=== PATIENT | female | born 1990 | race Caucasian/White ===

== ENCOUNTER 2025-04-14 15:59 | Emergency (ER) | payer BC, SELFPAY ==
[2025-04-14] VITALS (20 sets, daily range): BP systolic 128–175; BP diastolic 79–109; PULSE 52–90; TEMP 36.4; O2SAT 100; BMI 18.7
--- NOTE | 2025-04-14 16:14 | PC.NURSE ---
pt describes CP as pressure upper midsternal since urs
--- NOTE | 2025-04-14 16:25 | ECG_ITS ---
[facility] Test Date: 2025-04-14 Pat Name: RODY CARRASCO Department: Room: - Gender: Female Diabetes Territory Manager: : 1990 Requested By: [id number] Order Number: [id number] Reading MD: SIA HOLLOWAY M.D. Measurements Intervals Elliott Rate: 74 P: 60 DC: 142 QRS: 93 QRSD: 88 T: 35 QT: 370 QTc: 397 Interpretive Statements 1100 Sinus rhythm 7102 Moderate right axis deviation Borderline ECG No previous ECG available for comparison Electronically Signed On 04-14-2025 20:33:11 EDT by SIA HOLLOWAY M.D.
[2025-04-14] MEDS: KETOROLAC TROMETHAMINE 30 MG/ML VIAL IVP (16:57)
--- NOTE | 2025-04-14 17:08 | ED.GENADUL1 ---
HPI HPI - General Adult General Chief complaint: Chest Pain Stated complaint: Chest Pain Time Seen by Provider: 04/14/25 16:04 Source: patient and family Mode of arrival: walk-in Limitations: no limitations History of Present Illness HPI narrative: Patient presents with chest pain that started on she has had some shortness of breath she has had rapid breathing, hypertension, pressure-like feeling in her chest slight cough slight sore throat. She does take medication including metoprolol and lisinopril. She does drink caffeinated products. Patient denies abdominal pain, urinary bleeding, rectal bleeding, vomiting, leg swelling, PE history, hemoptysis, hematemesis, hematuria states she only takes 2 medications. She does take aspirin occasionally. She does follow-up with cardiology. Symptoms mild to moderate severity nothing improves her symptoms nothing worsens her symptoms. Onset (ago): day(s) (3) Location: Reports chest Related Data Home Medications ?Medication ?Instructions ?Recorded ?Confirmed lisinopril 10 mg tablet 10 mg PO DAILY 04/14/25 04/14/25 magnesium 200 mg tablet 400 mg PO DAILY 04/14/25 04/14/25 metoprolol succinate 25 mg 12.5 mg PO DAILY 04/14/25 04/14/25 tablet,extended release 24 hr Previous Rx's ?Medication ?Instructions ?Recorded naproxen 500 mg tablet,delayed 500 mg PO BID #10 tabs 04/14/25 release (EC-Naprosyn) Allergies Allergy/AdvReac Type Severity Reaction Status Date / Time clonidine Allergy Severe increased Verified 04/14/25 16:03 blood blood pressure fish oil AdvReac Severe Vomiting Verified 04/14/25 16:03 Opioid HPI Opioid Management Most Recent Opioid Data: Last Pain Scale 6 Today, 16:03 Review of Systems ROS Status of ROS 10 or more systems reviewed and unremarkable except as noted in history and below Constitutional Denies: fatigue Eyes Reports: change in vision Ears, nose, mouth, and throat Reports: throat pain Cardiovascular Reports: chest pain and lightheadedness; Denies: swelling of feet/ankles Gastrointestinal Denies: abdominal pain, vomiting or blood in stool Genitourinary Reports: painful urination; Denies: blood in urine Musculoskeletal Reports: back pain; Denies: extremity swelling Integumentary/Breast Denies: rash Neurological Reports: headache Endocrine Denies: excessive urination Hematologic/Lymphatic Denies: easy bruising Allergic/Immunologic Denies: hives [facility] Medical History (Updated 04/14/25 @ 18:30 by MARKIE DOBBS II) HTN (hypertension) ?I10 - Essential (primary) hypertension (ICD-10) Social History Little interest or pleasure in doing things: not at all Feeling down, depressed, or hopeless: not at all Exam Constitutional Vital Signs, click to edit/add: Last Vital Signs Temp 97.5 F L 04/14/25 16:03 Pulse 67 04/14/25 18:10 Resp 18 04/14/25 18:10 BP 128/79 04/14/25 18:00 Pulse Ox 100 04/14/25 16:03 Documenting provider has reviewed patient's vital signs: yes Common normals: no apparent distress, oriented x3, healthy appearing and alert Exam limitations: no altered mental status General appearance: cooperative and well kempt; not in distress Orientation/consciousness: Yes awake, Yes oriented to person, Yes oriented to place and Yes oriented to time; not confused HENHI Common normals: normocephalic, head/scalp atraumatic, hearing grossly normal bilaterally and external ears normal Face and sinus: normal facial exam Nose: external nose normal General ear: hearing not grossly impaired External ear: external ears normal Tympanic membrane: TMs normal bilaterally Mouth: oral and palatal mucosa normal Throat: uvula midline and other (Slight erythema); no peritonsillar mass Eye Common normals: PERRL and EOMs intact bilaterally General eye: normal appearance of both eyes and normal light reflex Neck & C-Spine Common normals: full ROM and supple Chest Common normals: palpation of chest abnormal Chest: tenderness (Right anterior tenderness to palpation) Respiratory Common normals: normal respiratory effort and clear to auscultation bilaterally Effort & inspection: able to speak in complete sentences Auscultation: no wheezes Cardio Common normals: regular rate, regular rhythm, S1 normal heart sound and S2 normal heart sound GI Common normals: Normal to inspection, nondistended, normoactive bowel sounds present, soft to palpation and non-tender Back & Pelvis Common normals: thoraco-lumbar ROM normal Extremity Common normals: normal to inspection and no pedal edema General: other findings (+2 anterior tibial pulses bilaterally); no calf tenderness, no edema and pulses normal Neuro Common normals: oriented x3 and CN's II-XII intact bilaterally Psych Common normals: mental status grossly normal and thought process normal Course Vital Signs Vital signs: Vital Signs Temperature 97.5 F L 04/14/25 16:03 Pulse Rate 83 04/14/25 16:03 Respiratory Rate 20 04/14/25 16:03 Blood Pressure 175/109 H 04/14/25 16:03 Pulse Oximetry 100 04/14/25 16:03 Temperature 97.5 F L 04/14/25 16:03 Pulse Rate 67 04/14/25 18:10 Respiratory Rate 18 04/14/25 18:10 Blood Pressure 128/79 04/14/25 18:00 Pulse Oximetry 100 04/14/25 16:03 Medical Decision Making [facility] Narrative Medical decision making narrative: Patient presents with 3-day history of pressure reproducible chest wall pain. She also has cough slight sore throat headache she denies any history of CAD stents surgery PE DVT. PERC score 0. Will add CBC CMP troponin x 2 chest x-ray magnesium EKG. 30 mg IV. cn II- 12 grossly intact. Patient remains conversant. Headache negative. she states she does take a magnesium supplement denies any additional medications including prednisone or steroids. Patient has 2 negative troponins. 1.6 magnesium will increase her magnesium to twice daily for 3 days. She will follow-up with her primary project asst Dr. Squires. Continue her medication we discussed chest wall pain reproducible atypical chest pain at length. X-ray report negative per radiology report Differential Diagnosis Differential Diagnosis: Atypical chest pain upper respiratory infection pneumonia. Lab Data Lab results reviewed: Yes I reviewed the patient's lab results Labs: Lab Results 04/14/25 04/14/25 04/14/25 Range/Units 16:42 16:45 17:24 WBC 7.0 (4.0-11.0) 10^3/uL RBC 4.39 (4.20-5.40) 10^6/uL Hgb 13.7 (12.0-16.0) g/dL Hct 38.7 (36.0-48.0) % MCV 88.2 (81.0-99.0) fL MCH 31.2 (26.7-34.0) pg MCHC 35.4 H (29.9-35.2) g/dL RDW 11.9 (11.0-15.0) % Plt Count 296 (150-450) 10^3/uL MPV 9.3 L (9.5-13.5) fL Neut % (Auto) 54.8 (43.0-75.0) % Lymph % (Auto) 35.7 (20.5-60.0) % [place] % (Auto) 6.7 (1.7-12.0) % Eos % (Auto) 2.3 (0.9-7.0) % Baso % (Auto) 0.4 (0.2-2.0) % Neut # (Auto) 3.9 (1.4-6.5) 10^3/uL Lymph # (Auto) 2.5 (1.2-3.8) 10^3/uL [place] # (Auto) 0.5 (0.3-0.8) 10^3/uL Eos # (Auto) 0.2 (0.0-0.7) 10^3/uL Baso # (Auto) 0.0 (0.0-0.1) 10^3/uL Abs Immat Gran (auto) 0.01 (0.00-0.03) 10^3/uL Imm/Tot Granulo (auto) 0.1 (0.0-0.5) % Sodium 140 (136-145) mmol/L Potassium 3.5 (3.5-5.1) mmol/L Chloride 105 (98-107) mmol/L Carbon Dioxide 25.2 (21.0-32.0) mmol/L Anion Gap 13.3 BUN 6.0 L (7.0-18.0) mg/dL Creatinine 0.63 (0.55-1.02) mg/dL Est GFR ( Amer) >60 (>=60 mL/min/1.73m^2) Est GFR (Non-Af Amer) >60 (>=60 mL/min/1.73m^2) BUN/Creatinine Ratio 9.5 Glucose 88 (74-106) mg/dL Calcium 8.9 (8.5-10.1) mg/dL Magnesium 1.6 L (1.8-2.4) mg/dL Total Bilirubin 0.4 (0.2-1.0) mg/dL AST 12 L (15-37) U/L ALT 16 (14-59) U/L Alkaline Phosphatase 58 (46-116) U/L Troponin I High Sens 4.2 (4.0-51.3) pg/mL Total Protein 7.1 (6.4-8.2) g/dL Albumin 4.1 (3.4-5.0) g/dL Globulin 3.0 g/dL Albumin/Globulin Ratio 1.4 SARS-CoV-2 Ag (CV2AG) Negative (NEGATIVE) Streptococcus Screen Negative 04/14/25 Range/Units 17:49 WBC (4.0-11.0) 10^3/uL RBC (4.20-5.40) 10^6/uL Hgb (12.0-16.0) g/dL Hct (36.0-48.0) % MCV (81.0-99.0) fL MCH (26.7-34.0) pg MCHC (29.9-35.2) g/dL RDW (11.0-15.0) % Plt Count (150-450) 10^3/uL MPV (9.5-13.5) fL Neut % (Auto) (43.0-75.0) % Lymph % (Auto) (20.5-60.0) % [place] % (Auto) (1.7-12.0) % Eos % (Auto) (0.9-7.0) % Baso % (Auto) (0.2-2.0) % Neut # (Auto) (1.4-6.5) 10^3/uL Lymph # (Auto) (1.2-3.8) 10^3/uL [place] # (Auto) (0.3-0.8) 10^3/uL Eos # (Auto) (0.0-0.7) 10^3/uL Baso # (Auto) (0.0-0.1) 10^3/uL Abs Immat Gran (auto) (0.00-0.03) 10^3/uL Imm/Tot Granulo (auto) (0.0-0.5) % Sodium (136-145) mmol/L Potassium (3.5-5.1) mmol/L Chloride (98-107) mmol/L Carbon Dioxide (21.0-32.0) mmol/L Anion Gap BUN (7.0-18.0) mg/dL Creatinine (0.55-1.02) mg/dL Est GFR ( Amer) (>=60 mL/min/1.73m^2) Est GFR (Non-Af Amer) (>=60 mL/min/1.73m^2) BUN/Creatinine Ratio Glucose (74-106) mg/dL Calcium (8.5-10.1) mg/dL Magnesium (1.8-2.4) mg/dL Total Bilirubin (0.2-1.0) mg/dL AST (15-37) U/L ALT (14-59) U/L Alkaline Phosphatase (46-116) U/L Troponin I High Sens 5.3 (4.0-51.3) pg/mL Total Protein (6.4-8.2) g/dL Albumin (3.4-5.0) g/dL Globulin g/dL Albumin/Globulin Ratio SARS-CoV-2 Ag (CV2AG) (NEGATIVE) Streptococcus Screen ECG Data Attestation: I personally reviewed and interpreted this ECG as follows: Interpretation: Sinus rhythm rate 74 bpm MD interval 142 ms QRS 88 ms QTc 397 ms. Discharge Plan Discharge Chief Complaint: Chest Pain Clinical Impression: Atypical chest pain, Hypomagnesemia Patient Disposition: Home, Self-Care Time of Disposition Decision: 18:27 Condition: Good Mode of Transportation: Private Vehicle Prescriptions / Home Meds: New naproxen [EC-Naprosyn] 500 mg tablet,delayed release (DR/EC) 500 mg PO BID Qty: 10 0RF No Action lisinopril 10 mg tablet 10 mg PO DAILY magnesium 200 mg tablet 400 mg PO DAILY metoprolol succinate 25 mg tablet extended release 24 hr 12.5 mg PO DAILY Print Language: Hebrew Instructions: Chest Wall Pain (ED) Additional Instructions: Increase magnesium supplement 400 mg twice daily for 3 days. Care and cardiology. Monitor blood pressure twice daily. Continue taking medications as prescribed including metoprolol and lisinopril. Referrals: DR Moore/your cardiology [Other] - As soon as possible Physician,Non-Staff, MD [Primary Care Provider] - 1 week
[2025-04-14 17:29] LABS: Hematocrit 38.7 % (36.0-48.0); Hemoglobin 13.7 g/dL (12.0-16.0); Immature Granulocytes Abs Auto 0.01 10^3/uL (0.00-0.03); Immature Granulocytes Pct Auto 0.1 % (0.0-0.5); Lymphocytes Absolute Auto 2.5 10^3/uL (1.2-3.8); Mean Corpuscular HGB Conc 35.4 g/dL (29.9-35.2); Mean Corpuscular Hemoglobin 31.2 pg (26.7-34.0); Mean Corpuscular Volume 88.2 fL (81.0-99.0); Platelet Count 296 10^3/uL (150-450); Red Blood Count 4.39 10^6/uL (4.20-5.40); White Blood Count 7.0 10^3/uL (4.0-11.0)
[2025-04-14 17:29] LABS: SARS-CoV-2 Ag NEGATIVE (NEGATIVE)
[2025-04-14 17:29] LABS: Alanine Aminotransferase 16 U/L (14-59); Albumin Globulin Ratio 1.4; Albumin Level 4.1 g/dL (3.4-5.0); Alkaline Phosphatase 58 U/L (46-116); Anion Gap 13.3; Aspartate Amino Transferase 12 U/L (15-37); Blood Urea Nitrogen 6.0 mg/dL (7.0-18.0); Calcium 8.9 mg/dL (8.5-10.1); Carbon Dioxide 25.2 mmol/L (21.0-32.0); Chloride 105 mmol/L (98-107); Estimated GFR (African America >60 (>=60 mL/min/1.73m^2); Estimated GFR (Non-African Ame >60 (>=60 mL/min/1.73m^2); Globulin 3.0 g/dL; Glucose 88 mg/dL (74-106); Magnesium 1.6 mg/dL (1.8-2.4); Potassium 3.5 mmol/L (3.5-5.1); Sodium 140 mmol/L (136-145); Total Protein 7.1 g/dL (6.4-8.2)
--- NOTE | 2025-04-14 17:31 | XR_ITS ---
The [address] [address] Patient Name: RODY CARRASCO MRN: [id number] date: 1990 Sex: F Assigned Patient Location: ER Current Patient Location: ER Accession/Order Number: [id number] Exam Date: 04/14/2025 17:55 Report Date: 04/14/2025 17:56 At the request of: JAKE ADEN Procedure: XR chest 2V Chest 2 views CLINICAL HISTORY: chest pain COMPARISON: None FINDINGS: Heart normal in size. Lungs are clear. No free air. XR/XR chest 2V IMPRESSION: NO ACUTE CARDIOPULMONARY ABNORMALITY. Impression dictated by: Howard Everett Jr. DHeribertoOHeriberto 04/14/2025 5:56 PM Dictation Location: [place] [address] Electronically authenticated by: [id number] Y Date: 04/14/2025 17:56
[2025-04-14] MEDS: ACETAMINOPHEN 500 MG TABLET 1000 MG PO (18:35)
== END 2025-04-14 18:48 | disposition home or self-care (01) ==
PROVIDERS: Physician Assistant; Emergency Provider Emergency Medicine
DX: R07.89 Other chest pain (principal); E83.42 Hypomagnesemia; R06.02 Shortness of breath; R05.9 Cough, unspecified; J02.9 Acute pharyngitis, unspecified
CPT/HCPCS: 36415; 71046; 80053; 83735; 84484; 84703; 85025; 87070; 87811; 87880; 93005; 96374; 99284; 99285; J1885

== ENCOUNTER 2025-04-27 09:31 | Emergency (ER) | payer BC, SELFPAY ==
[2025-04-27 09:42] VITALS: BP 138/82; PULSE 87; TEMP 36.6; O2SAT 99
--- NOTE | 2025-04-27 10:13 | US_ITS ---
The [address] [address] Patient Name: RODY CARRASCO MRN: [id number] date: 1990 Sex: F Assigned Patient Location: ER Current Patient Location: ER Accession/Order Number: [id number] Exam Date: 04/27/2025 10:49 Report Date: 04/27/2025 11:49 At the request of: OSIRIS MCNALLY DO Procedure: US thyroid US thyroid 04/27/2025 11:19 AM SIGNS AND SYMPTOMS: ^family history thyroid ca., neck pain/swelling COMPARISON: None. FINDINGS: Right and left thyroid lobes are normal in size and echotexture. The right thyroid lobe measures 4.6 x 1.2 x 1.5 cm and the left thyroid lobe measures 4.0 x 0.9 x 1.2 cm. The isthmus measures 2 mm in thickness. No thyroid nodules are present. There are mildly prominent cervical lymph nodes measuring up to 3 mm and 5 mm in short axis within the right and left sides of the neck adjacent to the thyroid bed. US/US thyroid IMPRESSION: TIRADS: 1 (benign) Recommendation: No further ultrasound follow-up is recommended. No thyroid nodules are noted. Benign-appearing lymph nodes are demonstrated in the neck bilaterally. Impression dictated by: Willie Mao M.D. 04/27/2025 11:49 AM Dictation Location: [place] [address] Electronically authenticated by: [id number] Y Date: 04/27/2025 11:49
[2025-04-27] MEDS: DEXAMETHASONE 4 MG TABLET PO (10:36)
--- NOTE | 2025-04-27 14:52 | ED_ITS ---
HPI HPI - General Adult General Chief complaint: Upper Respiratory Infection Stated complaint: SORE THROAT Time Seen by Provider: 04/27/25 09:44 Source: patient Mode of arrival: walk-in Limitations: no limitations History of Present Illness HPI narrative: Patient is a 35-year-old female presenting to the emergency department for concerns of a sore throat x 2 days. Patient is concerned for thyroid cancer as her mother was diagnosed with thyroid cancer a few months ago. Patient states that her throat feels sore and is painful when she swallows. She still able to tolerate p.o. She has no neck swelling, but feels like she has swollen lymph nodes. She denies any ear pain or rhinorrhea. She denies any heat/cold intolerance, recent weight loss, changes in her hair or nails. No chest pain or shortness of breath. No fevers or chills. Related Data Home Medications ?Medication ?Instructions ?Recorded ?Confirmed lisinopril 10 mg tablet 10 mg PO DAILY 04/14/2505/31 magnesium 200 mg tablet 400 mg PO DAILY 04/14/2505/31 metoprolol succinate 25 mg 12.5 mg PO DAILY 04/14/25 0 04/14/25 tablet,extended release 24 hr Previous Rx's ?Medication ?Instructions ?Recorded naproxen 500 mg tablet,delayed 500 mg PO BID #10 tabs 04/14/25 release (EC-Naprosyn) Allergies Allergy/AdvReac Type Severity Reaction Status Date / Time clonidine Allergy Severe increased Verified 04/27/25 09:41 blood blood pressure fish oil AdvReac Severe Vomiting Verified 04/27/25 09:41 Opioid HPI Opioid Management Most Recent Opioid Data: 2 Last Pain Scale 5 Today, 09:42 Review of Systems ROS Status of ROS 10 or more systems reviewed and unremark able except as noted in history and below [facility] Medical History (Updated 04/27/25 @ 11:55 by Dwight Sauceda DO) HTN (hypertension) ?I10 - Essential (primary) hypertension (ICD-10) Social History Little interest or pleasure in doing things: not at all Feeling down, depressed, or hopeless: not at all Exam Narrative Exam Narrative: CONSTITUTIONAL: Well-appearing, answering questions and following commands appropriately SKIN: Was warm and dry. EYES: No conjunctival exudates. Sclera white. EARS, NOSE, THROAT: Mild pharyngeal erythema without tonsillar enlargement or exudates. Uvula midline. No trismus. No drooling. No neck swelling. Mild cervical lymphadenopathy. No goiter. Speaking with a normal voice. RESPIRATORY: Clear to auscultation bilaterally, no wheezes, crackles, or stridor, no use of accessory muscles CARDIOVASCULAR: Normal rate and regular rhythm. There is no S3, S4, murmur, rub. GASTROINTESTINAL: Abdomen was soft, non-tender, and non-distended. There is no guarding or rebound tenderness MUSCULOSKELETAL: No peripheral edema. NEUROLOGIC: Patient is awake and alert. Facies were symmetrical. Constitutional Vital Signs, click to edit/add: Last Vital Signs Temp 98 F 04/27/25 09:42 Pulse 87 04/27/25 09:42 Resp 16 04/27/25 09:42 BP 138/82 04/27/25 09:42 Pulse Ox 99 04/27/25 09:42 O2 Del Method Room Air 04/27/25 09:42 Course Vital Signs Vital signs: Vital Signs Temperature 98 F 04/27/25 09:42 Pulse Rate 87 04/27/25 09:42 Respiratory Rate 16 04/27/25 09:42 Blood Pressure 138/82 04/27/25 09:42 Pulse Oximetry 99 04/27/25 09:42 Oxygen Delivery Method Room Air 04/27/25 09:42 Temperature 98 F 04/27/25 09:42 Pulse Rate 87 04/27/25 09:42 Respiratory Rate 16 04/27/25 09:42 Blood Pressure 138/82 04/27/25 09:42 Pulse Oximetry 99 04/27/25 09:42 Oxygen Delivery Method Room Air 04/27/25 09:42 Medical Decision Making [facility] Narrative Medical decision making narrative: Patient is a 35-year-old female presenting to the emergency department for sore throat x 2 days. Patient is concerned for thyroid cancer given her positive family history. Patient's vital signs are within normal limits. She is afebrile and hemodynamically stable. Physical examination is consistent with a viral pharyngitis with mild cervical lymphadenopathy. No evidence of Sincere's angina, peritonsillar abscess, or other more severe ENT pathologies. She has no goiter, palpable thyroid nodules, or systemic symptoms to suggest hypo- /hyperthyroidism. However, patient is insistent that she receives an ultrasound for further investigation. I did order this. She was treated symptomatically with oral dexamethasone. Ultrasound of the thyroid independently reviewed/interpreted by myself and radiology benign appear cervical lymphadenopathy. No thyroid pathology. I do believe the patient is stable for discharge at this time. Patient's presentation is most likely consistent with viral pharyngitis. They were instructed to follow up with their PCP as needed. Return precautions were given including any new or worsening symptoms. Patient understands and agrees to the plan. FINAL IMPRESSION: Acute viral pharyngitis DISPOSITION: Home CONDITION: Good Differential Diagnosis Differential Diagnosis: viral pharyngitis, URI, thyroiditis Lab Data Labs: Lab Results 04/27/25 Range/Units 09:40 Streptococcus Screen Negative Imaging Data US thyroid: Radiologist's impression: ITS Impressions Thyroid Ultrasound 04/27/25 10:13 IMPRESSION: TIRADS: 1 (benign) Recommendation: No further ultrasound follow-up is recommended. No thyroid nodules are noted. Benign-appearing lymph nodes are demonstrated in the neck bilaterally. Impression dictated by: Willie Mao M.D. 04/27/2025 11:49 AM Dictation Location: [place] [address] Electronically authenticated by: [id number] Y Date: 04/27/2025 11:49 Discharge Plan Discharge Chief Complaint: Upper Respiratory Infection Clinical Impression: Pharyngitis Qualifiers: Pharyngitis/tonsillitis etiology: other specified organisms Qualified Code(s): J02.8 - Acute pharyngitis due to other specified organisms Patient Disposition: Home, Self-Care Time of Disposition Decision: 11:55 Condition: Good Mode of Transportation: Private Vehicle Prescriptions / Home Meds: No Action lisinopril 10 mg tablet 10 mg PO DAILY magnesium 200 mg tablet 400 mg PO DAILY metoprolol succinate 25 mg tablet extended release 24 hr 12.5 mg PO DAILY naproxen [EC-Naprosyn] 500 mg tablet,delayed release (DR/EC) 500 mg PO BID Qty: 10 0RF Print Language: Kinyarwanda Instructions: Pharyngitis (ED) Referrals: Physician,Non-Staff, MD [Primary Care Provider] - 1 week Discharge Date/Time: 04/27/25 12:07
== END 2025-04-27 12:07 | disposition home or self-care (01) ==
PROVIDERS: Emergency Provider Student in an Organized Health Care Education/Training Program
DX: J02.8 Acute pharyngitis due to other specified organisms (principal); Z80.8 Family history of malignant neoplasm of other organs or systems
CPT/HCPCS: 76536; 87070; 87880; 99284; J8540